=== PATIENT | female | born 1995 ===

== ENCOUNTER 2017-05-24 08:11 | Emergency (ER) | payer MEDICAID ==
[2017-05-24] MEDS ORDERED: Phenazopyridine TAB* 100 MG PO ONE (09:16)
--- NOTE | 2017-05-24 09:24 | UC ---
Emerson Roberts Angela, scribed for Carmen Elias MD on 05/24/17 at 0913 . Complaint Female HPI - HPI Summary HPI Summary: This pt is a 22 y/o female presenting to [facility] c/o dysuria, urinary frequency, and urinary urgency x2 days. Pt notes having UTIs before and has had 4 UTIs since September 2016. Pt reports mild back pain. She denies fever, chills, hematuria, nausea, vaginal discharge or odors.No vaginal discharge. Last night pt took Advil with relief. The last time she was on antibiotics was in January. Pt is currently sexually active with the same partner for 3 years now. She denies any current or prior STIs. Pt notes her partner has not had any symptoms. She states switching control prescription last year in May. LNMP: 28 days ago. NKDA Patients medication reviewed this visit. - History Of Current Complaint Chief Complaint: UCGU Stated Complaint: UTI Time Seen by Provider: 05/24/17 08:56 Hx Obtained From: Patient Hx Last Menstrual Period: 05/03/17 ?: No Onset/Duration: Lasting Days Timing: Lasting Days Severity Initially: Mild Severity Currently: Moderate Character: Burning Associated Signs And Symptoms: Positive: Back Pain. Negative: Fever, Vaginal Bleeding/Discharge, Vaginal Discharge, Nausea, Genital Swelling, Genital Blisters - Allergies/Home Medications Allergies/Adverse Reactions: Allergies Allergy/AdvReac Type Severity Reaction Status Date / Time No Known Allergies Allergy Verified 05/24/17 08:54 Home Medications: Home Medications Oral Control 05/24/17 [History] PMH/Surg Hx/FS Hx/Imm Hx Previously Healthy: Yes Other Endocrine History: DENIES: diabetes Other Cardiovascular History: DENIES: HTN - Surgical History Surgical History: None - Family History Known Family History: Positive: Other - Denies FHx of bladder problems Negative: Diabetes - Social History Occupation: Employed Full-time Lives: With Family Alcohol Use: None Substance Use Type: None Smoking Status (MU): Never Smoked Tobacco Review of Systems Constitutional: Negative Skin: Negative Eyes: Negative ENT: Negative Respiratory: Negative Cardiovascular: Negative Gastrointestinal: Negative Genitourinary: Dysuria, Frequency, Urgency Motor: Negative Neurovascular: Negative Musculoskeletal: Other: - back pain Neurological: Negative Psychological: Negative All Other Systems Reviewed And Are Negative: Yes Physical Exam Triage Information Reviewed: Yes Appearance: Well-Appearing, No Pain Distress, Well-Nourished Vital Signs: Initial Vital Signs Temp 98 F 05/24/17 08:55 Pulse 62 05/24/17 08:55 Resp 16 05/24/17 08:55 BP 136/81 05/24/17 08:55 Pulse Ox 99 05/24/17 08:55 Vital Signs Reviewed: Yes Eye Exam: Normal Eyes: Positive: Conjunctiva Clear ENT Exam: Normal ENT: Positive: Normal ENT inspection, Hearing grossly normal, Pharynx normal, TMs normal Dental Exam: Normal Neck exam: Normal Neck: Positive: Supple, Nontender, No Lymphadenopathy Respiratory Exam: Normal Respiratory: Positive: Chest non-tender, Lungs clear, Normal breath sounds, No respiratory distress Cardiovascular Exam: Normal Cardiovascular: Positive: RRR, No Murmur, Pulses Normal Abdominal Exam: Normal Abdomen Description: Positive: No Organomegaly, Soft, Bruit. Negative: Nontender - mild suprapubic discomfort soft + BS no guarding, no rebound, CVA Tenderness (R), CVA Tenderness (L) Bowel Sounds: Positive: Present Musculoskeletal Exam: Normal Musculoskeletal: Positive: Strength Intact Neurological Exam: Normal Neurological: Positive: Alert Psychological Exam: Normal Skin Exam: Normal Complaint Female Dx - Course Course Of Treatment: PT presents with 2 days of dysuria, hematuria frequency. Pt denies fevers, mild back pain. No vaginal discharge or sx. Pt reports recurrent UTIs. d/w urine hygiene with intercourse, hydrate. d/w pt pcp/special education professional regarding prophylaxis vs investigation for structural changes, vs change BCP. d /w pt culture + UTI - Rx macrobid, pyridium. Pt comfortable and in agreement with plan - Differential Dx/Diagnosis Provider Diagnoses: UTI Discharge - Discharge Plan Condition: Stable Disposition: HOME Prescriptions: Phenazopyridine TAB* [Pyridium 100 mg TAB*] 100 mg PO TID #6 tab Patient Education Materials: Urinary Tract Infection in Women (ED) Additional Instructions: - Stay well hydrated. Drink plenty of non-alcoholic, non-caffinated beverages - Take pyridium for burning discomfort - this will make your urine bright orange - this is normal - Okay to alternate ibuprofen (motrin, Advil) and tylenol every 3 hours as needed for pain. Take with food - Take antibiotics as prescribed until gone. Your urine will be sent for additional testing. If you need a different antibiotic, you will receive a call from our patient care team - contact your doctor to schedule a follow-up appointment. discuss with your doctor your frequent urinary infections and discuss the needed for additional testing - call your doctor or return with questions or concerns The documentation as recorded by the Emerson aguilar Angela accurately reflects the service I personally performed and the decisions made by me, Carmen Elias MD.
--- NOTE | 2017-05-25 17:43 | UC ---
Progress - Progress Note Progress Note: NO CHANGE
== END 2017-05-24 09:39 | disposition home or self-care (01) ==
LOC: UCEAST 08:11
DX: N39.0 Urinary tract infection, site not specified (principal); R31.9 Hematuria, unspecified; B96.20 Unspecified Escherichia coli [E. coli] as the cause of diseases classified elsewhere; Z32.02 Encounter for pregnancy test, result negative; Z87.440 Personal history of urinary (tract) infections
CPT/HCPCS: 81003; 84702; 87077; 87086; 87186; 99202; A9270-GY; G0463